=== PATIENT | male | born 1965 | race African-American/Black ===

== ENCOUNTER 2017-03-01 10:10 | Emergency (ER) | payer OTHER ==
[~2017-03-01] VITALS: Ht 182.9 cm; Wt 94.6 kg
[2017-03-01] MEDS ORDERED: ALLEGRA ALLERG180 MG PO (12:04)
[2017-03-01] MEDS ORDERED: DOXYCYCLINE HY100 MG PO (12:04)
[2017-03-01] MEDS ORDERED: FLONASE16 G1 BOTH NARES (12:04)
[2017-03-01 12:26] VITALS: BP 153/104
== END 2017-03-01 12:27 | disposition home or self-care (01) ==
LOC: EME 10:10
DX: J30.9 Allergic rhinitis, unspecified (principal); J01.90 Acute sinusitis, unspecified; F17.220 Nicotine dependence, chewing tobacco, uncomplicated